=== PATIENT | female | born 1995 | race Hispanic/Latino ===

== ENCOUNTER 2018-05-01 18:04 | Emergency (ER) | payer OTHER ==
[~2018-05-01 18:04] MED LIST: IBUPROFEN800 MG PO; MULTIVITAMIN1 TAB PO; PERCOCET 325 MG1 TA2 PO; PRENATAL VITAMI1 TA4 PO; ZITHROMAX Z-PA250 M1 PO
[2018-05-01 18:07] VITALS: BP 125/80
[2018-05-01] MEDS ORDERED: PROVENTIL HFA6.7 GM INH (18:52)
[2018-05-01] MEDS ORDERED: BENZONATATE200 M1 PO (18:52)
[2018-05-01] MEDS ORDERED: ZITHROMAX250 M2 PO (18:52)
--- NOTE | 2018-05-01 18:52 | ED INFLUENZA/URI COMPLAINT ---
History of Present Illness General Chief Complaint: Upper Respiratory Sx/Fever Stated Complaint: URI Source: patient Exam Limitations: no limitations Vital Signs & Intake/Output Vital Signs & Intake/Output Vital Signs Date Time Temp Pulse Resp B/P B/P Pulse O2 O2 Flow FiO2 Mean Ox Delivery Rate 05/01 1903 Room Air 05/01 1807 99.1 97 17 125/80 97 Room Air Allergies Coded Allergies: NO KNOWN ALLERGIES (05/17/11) Reconcile Medications Albuterol Sulfate (Proventil Hfa) 90 MCG HFA.AER.AD 2 PUF INH Q4 SOB Azithromycin (Zithromax) 250 MG TABLET 1 DP PO AD BRONCHITIS 2 the first day followed by 1 for days 2-5 Azithromycin (Zithromax Z-Damian) 250 MG CAP 1 DP PO AD PHARYNGITIS 2 the first day followed by 1 for days 2-5 Benzonatate 200 MG CAPSULE 1 CAP PO TIDPRN COUGH Triage Note: PT TO ED WITH C/O NON PROD COUGH FOR THE PAST COUPLE WEEKS. STATES HAD BRONICHITIS A COUPLE MONTHS AGO AND FEELS SIMILAR. REPORTS MILD SOB ON EXERTION. ABLE TO SPEAK IN FULL SENTENCES. DENIES FEVERS/CHILLS Triage Nurses Notes Reviewed? yes Onset: Abrupt Duration: day(s): Timing: recent history Severity: mild, moderate : No Patient currently breastfeeds: No HPI: 22-year-old female comes into the emergency room with associated cough mild congestion and some associated shortness of breath. Symptoms been going on for the past few days. Was diagnosed bronchitis a couple months ago improved after treatment. She comes back in for further evaluation. (Slade Ratliff) Past History Travel History Traveled to [place] past 21 day No Medical History Any Pertinent Medical History? see below for history Neurological: NONE EENT: NONE Cardiovascular: NONE Respiratory: NONE Gastrointestinal: NONE Hepatic: NONE Renal: NONE Musculoskeletal: NONE Psychiatric: NONE Endocrine: NONE Blood Disorders: NONE Cancer(s): NONE BRICK VENEER MAKER/Reproductive: OVARIAN CYSTS Surgical History Surgical History: N Psychosocial History What is your primary language Sen[place]alese Tobacco Use: Never used ETOH Use: occasional use Family History Hx Contributory? No (Slade Ratliff) Review of Systems Review of Systems Constitutional: Reports: see HPI. EENTM: Reports: see HPI. Respiratory: Reports: see HPI. Cardiovascular: Reports: no symptoms. GI: Reports: no symptoms. Genitourinary: Reports: no symptoms. Musculoskeletal: Reports: no symptoms. Skin: Reports: no symptoms. Neurological/Psychological: Reports: no symptoms. Hematologic/Endocrine: Reports: no symptoms. Immunologic/Allergic: Reports: no symptoms. All Other Systems: Reviewed and Negative (Slade Ratliff) Physical Exam Physical Exam General Appearance: well developed/nourished, no apparent distress, alert, awake Head: atraumatic Eyes: Bilateral: normal appearance. Ears, Nose, Throat: moist mucous membrane, hearing grossly normal Neck: normal inspection Respiratory: normal breath sounds, no respiratory distress Cardiovascular: regular rate/rhythm Back: normal inspection Neurologic/Psych: awake, alert, oriented x 3 Skin: intact, normal color Core Measures Sepsis Present: No Sepsis Focused Exam Completed? No (Slade Ratliff) Progress Differential Diagnosis: influenza, otitis, pneumonia, pharyngitis, sinusitis, pe Plan of Care: 05/01/2018 7:44:51 PM Patient is a negative perc score and low probability well's criteria. Symptoms most consistent with bronchitis. No suspicion for pulmonary embolism at this time. Patient told to follow-up with primary care doctor. Return if any other concerns worsening symptoms. Understands and agrees with plan of care. Initial ED EKG: none (Slade Ratliff) Departure Departure Disposition: HOME OR SELF CARE Condition: Stable Clinical Impression Primary Impression: Bronchitis Referrals: Patient Has No Primary Care Dr (PCP/Family) Additional Instructions: Taking Z-Damian, albuterol, and Tessalon Perles as prescribed. Drink plenty fluids. Rest. Ibuprofen. Follow-up with primary care doctor. Please go over all results of today's visit with your primary care doctor. Contact your primary care doctor to let them know you were here in the emergency room. There may be nonspecific findings which may not be related to your visit today here in the emergency room but may require further evaluation and chronic monitoring by your primary care doctor. If you had a laceration today the chance of foreign body always remains. You should follow-up with your primary care doctor for recheck in 3-5 days for a wound check. If you had an x-ray done there is a chance that a fracture could have been missed on initial read and you should follow-up with your primary care doctor for repeat x-rays if symptoms persist. If your blood pressure was elevated here in the emergency room please have rechecked by [facility] primary care doctor within the next 48. If you were prescribed a narcotic here in the emergency room or any type of controlled substances you're not allowed to drive while taking this medication or operate any type of heavy machinery. Narcotics can make you feel lightheaded dizziness nausea and can cause constipation. You may need to pickling operator a stool softener. Thank you for choosing [facility] emergency room. Please return to the emergency room immediately if you have any other concerns worsening of symptoms. Departure Forms: Customer Survey General Discharge Information Prescriptions: Current Visit Scripts Azithromycin (Zithromax) 1 DP PO AD #6 TAB 2 the first day followed by 1 for days 2-5 Albuterol Sulfate (Proventil Hfa) 2 PUF INH Q4 #1 INHAL Benzonatate 1 CAP PO TIDPRN #30 CAP (Slade Ratliff) PA/HOOP PUNCH OPERATOR HELPER Co-Sign Statement Statement: ED Attending supervision documentation- [] I saw and evaluated the patient. I have also reviewed all the pertinent lab results and diagnostic results. I agree with the findings and the plan of care as documented in the PA's/HOOP PUNCH OPERATOR HELPER's documentation. [x] I have reviewed the ED Record and agree with the PA's/HOOP PUNCH OPERATOR HELPER's documentation. [] Additions or exceptions (if any) to the PAs/HOOP PUNCH OPERATOR HELPER's note and plan are summarized below: [] (Jamie Mclean DO)
== END 2018-05-01 19:05 ==
LOC: ERH 18:04
DX: J40 Bronchitis, not specified as acute or chronic (principal)